=== PATIENT | female | born 1965 | race Caucasian/White ===

== ENCOUNTER → 2017-03-25 | Outpatient (CLI) | payer BC ==
[2017-03-25 15:17] VITALS: BP 134/89; PULSE 80; TEMP 98.8; BMI 27.8
--- NOTE | 2017-03-25 15:23 | P.HPBAR ---
Bariatric H&P - History & Physicial H&P Date: 03/25/17 History & Physicial: Visit/CC: follow up lap band Patient initial contact: Initial weight: Initial weight in pounds: Height: 5 ft Initial BMI: Last weight: Current weight: 64.773 kg Current weight in pounds: 142.80 Current BMI: 27.8 [place] body weight (based on NIH guidelines): 45.359 kg Excess body weight loss: The patient is a 51 year-old F who presents for Bariatric Assessment. Patient presents today for lab band follow up. She is not been seen for several years. Patient states that she's had dysphagia and GERD and vomiting for approximately 5 months. Her family doctor has given her Pepcid and Carafate Past Medical History Past Medical History: GERD/Reflux History of Any Multi-Drug Resistant Organisms: None Reported Past Surgical History: Bariatric Surgery, Cholecystectomy Additional Past Surgical History / Comment(s): gastric band 2011 Past Anesthesia/Blood Transfusion Reactions: No Reported Reaction Past Psychological History: No Psychological Hx Reported Smoking Status: Never smoker Past Alcohol Use History: None Reported Surgical - Exam Vital Signs Temp Pulse BP 98.8 F 80 134/89 03/25/17 15:09 03/25/17 15:09 03/25/17 15:09 - General well developed, no distress - Eyes PERRL - ENT normal pinna - Neck no masses - Respiratory normal expansion - Cardiovascular Rhythm: regular - Abdomen Abdomen: soft, non tender Bariatric Assessment & Plan Plan: The patient's lap band was adjusted. 3 mL was removed from her LAP-BAND. She currently has 2 mL remaining in the band. The patient was sent for an esophagram and upper GI. She'll follow-up in 2 weeks. Bariatric Checklist Checklist: Plan: Checklist: EGD: 1. Hiatal hernia: 2. H. Pylori: HgbA1c: Vitamin D: Smoking: Never smoker Primary care physician referral: none Psychiatry clearance: Cardiology clearance: Sleep study: Diet journal: VTE risk score: VTE risk level: Rehab needs at discharge:
--- NOTE | 2017-03-25 16:46 | FL ---
SINGLE CONTRAST UPPER GI EXAMINATION: CLINICAL HISTORY: 51-year-old female with lap band fibers ago, trouble swallowing for the past few m onths. TECHNIQUE: Single contrast exam performed with 2 ounces of thin barium. Total fluoroscopy time: 0.7 minutes. FINDINGS: The patient swallowed a total of 2 ounces of thin barium with some hesitancy but without difficulty. Esophageal peristalsis and motility are within normal limits. Laparoscopic banding device is noted t o be in place just below the GE junction. While it has a slightly horizontal orientation, there is go od flow of contrast across lap band with moderate restriction. IMPRESSION: A total of 2 ounces of thin barium was ingested. There is moderate restriction to the passage of cont rast across the lap band without evidence for obstruction or prolapse.
== END | disposition home or self-care (01) ==
LOC: BARWHC3 14:55
PROVIDERS: ATTEND Surgery
DX: Z09 Encounter for follow-up examination after completed treatment for conditions other than malignant neoplasm (principal); R13.10 Dysphagia, unspecified; Z98.84 Bariatric surgery status
CPT/HCPCS: 74220; 99201

== ENCOUNTER → 2017-11-15 | Outpatient (CLI) | payer BC ==
--- NOTE | 2017-11-15 10:56 | US ---
EXAMINATION TYPE: US pelvic complete DATE OF EXAM: 11/15/2017 COMPARISON: NONE CLINICAL HISTORY: N94.6 Dysmenorrhea, unspecified. Irregular painful cycles x 2 years, gotten worse in the past 6 months, 2, para 2 TECHNIQUE: Transabdominal (TA) Date of LMP: 11/09/2017 EXAM MEASUREMENTS: Uterus: 8.0 x 3.8 x 4.1 cm Endometrial Stripe: 0.4 cm Right Ovary: 2.3 x 1.3 x 1.6 cm Left Ovary: 1.7 x 1.2 x 1.6 cm 1. Uterus: anteverted, heterogeneous without any definite lesions seen at this time 2. Endometrium: wnl 3. Right Ovary: wnl 4. Left Ovary: wnl 5. Bilateral Adnexa: wnl 6. Posterior cul-de-sac: wnl IMPRESSION: 1. Nonspecific Uterine myometrial heterogeneity without distinct lesion.
== END | disposition home or self-care (01) ==
LOC: RADUSWWP 07:44
PROVIDERS: ATTEND Family Medicine
DX: N85.8 Other specified noninflammatory disorders of uterus (principal); N94.6 Dysmenorrhea, unspecified
CPT/HCPCS: 76856

== ENCOUNTER → 2018-03-10 | Outpatient (CLI) | payer BC ==
[2018-03-10 16:17] VITALS: BP 122/68; PULSE 85; RESP 16; TEMP 98; BMI 34.7
--- NOTE | 2018-03-10 16:27 | P.HPBAR ---
Bariatric H&P - History & Physicial H&P Date: 03/10/18 History & Physicial: Visit/CC: band adj Patient initial contact: Initial weight: Initial weight in pounds: Height: 5 ft Initial BMI: Last weight: Current weight: 80.513 kg Current weight in pounds: 177.50 Current BMI: 34.7 [place] body weight (based on NIH guidelines): 45.359 kg Excess body weight loss: The patient is a 52 year-old F who presents for Bariatric Assessment. The patient presents today for lab band follow. She has gained 30 pounds since her last visit. She was seen a year ago. She had 3 mL remove her band at that time. Past Medical History Past Medical History: GERD/Reflux History of Any Multi-Drug Resistant Organisms: None Reported Past Surgical History: Bariatric Surgery, Cholecystectomy Additional Past Surgical History / Comment(s): gastric band 2012 Past Anesthesia/Blood Transfusion Reactions: No Reported Reaction Smoking Status: Never smoker Surgical - Exam Vital Signs Temp Pulse Resp BP 98.0 F 85 16 122/68 03/10/18 16:12 03/10/18 16:12 03/10/18 16:12 03/10/18 16:12 - General well developed, no distress - Abdomen Abdomen: soft, non tender Bariatric Assessment & Plan Plan: 2 mL were added to the patient's LAP-BAND. She has 2.5 mL in the band. She'll follow-up in one month. Bariatric Checklist Checklist: Plan: Checklist: EGD: 1. Hiatal hernia: 2. H. Pylori: HgbA1c: Vitamin D: Smoking: Never smoker Primary care physician referral: none Psychiatry clearance: Cardiology clearance: Sleep study: Diet journal: VTE risk score: VTE risk level: Rehab needs at discharge:
== END | disposition home or self-care (01) ==
LOC: BARWHC3 15:54
PROVIDERS: ATTEND Surgery
DX: Z46.51 Encounter for fitting and adjustment of gastric lap band (principal); K21.9 Gastro-esophageal reflux disease without esophagitis; Z90.49 Acquired absence of other specified parts of digestive tract; Z98.84 Bariatric surgery status
CPT/HCPCS: 99212

== ENCOUNTER → 2018-03-24 | Outpatient (CLI) | payer BC ==
--- NOTE | 2018-03-24 15:54 | P.HPBAR ---
Bariatric H&P - History & Physicial H&P Date: 03/24/18 History & Physicial: Visit/CC: Patient initial contact: Initial weight: Initial weight in pounds: Height: Initial BMI: Last weight: 171 Current weight: 167 Current weight in pounds: Current BMI: [place] body weight (based on NIH guidelines): Excess body weight loss: The patient is a 52 year-old F who presents for Bariatric Assessment. Patient presents today for lab band follow up. She's had some occupants of GERD. She' s had good weight loss since her last visit. She denies any nausea or vomiting. Past Medical History Past Medical History: GERD/Reflux History of Any Multi-Drug Resistant Organisms: None Reported Past Surgical History: Bariatric Surgery, Cholecystectomy Additional Past Surgical History / Comment(s): gastric band 2012 Past Anesthesia/Blood Transfusion Reactions: No Reported Reaction Smoking Status: Never smoker Surgical - Exam - General well developed, no distress - Eyes PERRL - Neck no masses - Abdomen Abdomen: soft, non tender Bariatric Assessment & Plan Plan: Patient has some mild GERD. She denies any nausea or vomiting. Her band was not adjusted. She'll follow-up in one month. Bariatric Checklist Checklist: Plan: Checklist: EGD: 1. Hiatal hernia: 2. H. Pylori: HgbA1c: Vitamin D: Smoking: Never smoker Primary care physician referral: none Psychiatry clearance: Cardiology clearance: Sleep study: Diet journal: VTE risk score: VTE risk level: Rehab needs at discharge:
[2018-03-24 16:01] VITALS: BP 135/62; PULSE 73; TEMP 98; BMI 32.8
== END | disposition home or self-care (01) ==
LOC: BARWHC3 15:36
PROVIDERS: ATTEND Surgery
DX: Z09 Encounter for follow-up examination after completed treatment for conditions other than malignant neoplasm (principal); K21.9 Gastro-esophageal reflux disease without esophagitis; R63.4 Abnormal weight loss; Z90.49 Acquired absence of other specified parts of digestive tract; Z98.84 Bariatric surgery status
CPT/HCPCS: 99211

== ENCOUNTER → 2018-05-09 | Outpatient (CLI) | payer BC ==
--- NOTE | 2018-05-09 14:32 | XR ---
EXAMINATION TYPE: XR knee complete bilateral DATE OF EXAM: 05/09/2018 CLINICAL HISTORY: Bilateral knee pain. TECHNIQUE: Three views of the bilateral knees are obtained. COMPARISON: None. FINDINGS: There is no acute fracture/dislocation evident in either knee. There is fairly symmetric m ild tricompartment joint space loss. No significant spurring is seen. The overlying soft tissue appe ars unremarkable bilaterally. IMPRESSION: As above.
== END | disposition home or self-care (01) ==
LOC: RADXRYALE 14:11
PROVIDERS: ATTEND Physician Assistant Medical
DX: M25.562 Pain in left knee (principal); M25.561 Pain in right knee

== ENCOUNTER → 2018-10-17 | Outpatient (CLI) | payer BC ==
--- NOTE | 2018-10-17 14:19 | MM ---
Reason for exam: screening (asymptomatic). Last mammogram was performed 1 year ago. Physical Findings: A clinical breast exam by your physician is recommended on an annual basis and results should be correlated with mammographic findings. MG Screening Mammo w CAD Bilateral CC and MLO view(s) were taken. Prior study comparison: October 11, 2017, bilateral MG screening mammo w CAD. June 08, 2016, bilateral MG screening mammo w CAD. The breast tissue is heterogeneously dense. This may lower the sensitivity of mammography. No significant changes when compared with prior studies. ASSESSMENT: Benign, BI-RAD 2 RECOMMENDATION: Routine screening mammogram of both breasts in 1 year.
== END | disposition home or self-care (01) ==
LOC: RADMAMWWP 07:55
PROVIDERS: ATTEND Family Medicine
DX: Z12.31 Encounter for screening mammogram for malignant neoplasm of breast (principal)
CPT/HCPCS: 77067

== ENCOUNTER → 2019-06-12 | Outpatient (CLI) | payer BC ==
--- NOTE | 2019-06-12 13:46 | US ---
EXAMINATION TYPE: US thyroid st tissue head/neck DATE OF EXAM: 06/12/2019 COMPARISON: NONE CLINICAL HISTORY: R946 ABN RESULTS THYROID FUNCTIONS. complains of coldness, hair loss and fatigue GLAND SIZE: Right Lobe: 4.7 x 1.5 x 1.4 cm Overall Parenchyma: homogenous Left Lobe: 4.0 x 1.5 x 1.0 cm Overall Parenchyma: homogeneous Isthmus Thickness: 0.3 cm NODULES RIGHT: # of nodules measured on right: 2 largest of multiple 1. 0.3 X 0.3 x 0.2 cm hypoechoic cystic nodule at the upper pole with well-defined margins. This n odule is wider than tall and shows no intranodular vascularity. 2. 0.4 X 0.3 x 0.2 cm hypoechoic mixed nodule at the lower pole with well-defined margins. This nod ule is wider than tall and shows no intranodular vascularity. LEFT: # of nodules measured on left: 2 largest of multiple 1. 0.6 X 0.5 x 0.3 cm hypoechoic mixed nodule at the mid pole with poorly defined margins. This no dule is wider than tall and shows no intranodular vascularity. 2. 0.6 X 0.6 x 0.2 cm hypoechoic mixed nodule at the lower pole with well-defined margins. This nod ule is wider than tall and shows no intranodular vascularity. ISTHMUS: # of nodules measured in the isthmus: 0 Bilateral neck scanned: no evidence of lymphadenopathy. IMPRESSION: Bilateral subcentimeter thyroid nodules. None of these meet criteria this time for fine-needle aspira tion. Follow-up in 12 months could be considered.
== END | disposition home or self-care (01) ==
LOC: RADUSWWP 12:37
PROVIDERS: ATTEND Family Medicine
DX: E04.2 Nontoxic multinodular goiter (principal)
CPT/HCPCS: 76536

== ENCOUNTER → 2019-10-19 | Outpatient (CLI) | payer BC ==
[2019-10-19 16:42] VITALS: BP 133/73; PULSE 70; RESP 16; TEMP 98.7; BMI 26.2
--- NOTE | 2019-10-19 18:12 | P.HPBAR ---
Bariatric H&P - History & Physicial H&P Date: 10/19/19 History & Physicial: Visit/CC: ESOPHAGRAM F/U Patient initial contact: Initial weight: Initial weight in pounds: Height: 5 ft Initial BMI: Last weight: Current weight: 60.781 kg Current weight in pounds: 134.00 Current BMI: 26.2 [place] body weight (based on NIH guidelines): 45.359 kg Excess body weight loss: The patient is a 54 year-old F who presents for Bariatric Assessment. The patient has had some complaints of dysphagia. She is not sure how much fluid is in her LAP-BAND. Past Medical History Past Medical History: GERD/Reflux History of Any Multi-Drug Resistant Organisms: None Reported Past Surgical History: Bariatric Surgery, Cholecystectomy Additional Past Surgical History / Comment(s): gastric band 2012 Past Anesthesia/Blood Transfusion Reactions: No Reported Reaction Past Psychological History: No Psychological Hx Reported Smoking Status: Never smoker Past Alcohol Use History: None Reported Surgical - Exam Vital Signs Temp Pulse Resp BP 98.7 F 70 16 133/73 10/19/19 16:38 10/19/19 16:38 10/19/19 16:38 10/19/19 16:38 - General well developed, well nourished, no distress - Eyes PERRL - ENT normal pinna - Neck no masses - Respiratory normal expansion - Cardiovascular Rhythm: regular - Abdomen Abdomen: soft, non tender Bariatric Assessment & Plan Plan: The patient underwent esophagram. There is no evidence of any obstruction of her band. Her band appears to be slightly more horizontal however there is no obvious gastric prolapse. The patient will be observed. She'll follow-up in 4 weeks. Bariatric Checklist Checklist: Plan: Checklist: EGD: 1. Hiatal hernia: 2. H. Pylori: HgbA1c: Vitamin D: Smoking: Never smoker Primary care physician referral: none Psychiatry clearance: Cardiology clearance: Sleep study: Diet journal: VTE risk score: VTE risk level: Rehab needs at discharge:
--- NOTE | 2019-10-19 18:22 | FL ---
EXAMINATION TYPE: FL barium swallow DATE OF EXAM: 10/19/2019 COMPARISON: 01/09/2011 HISTORY: Lap band, dysphasia TECHNIQUE: A single contrast UGI study is performed. FINDINGS: Contrast passes from the distal esophagus through the lap band without hesitancy. No extrav asation of contrast is evident. LAP-BAND orientation is slightly flattened. No prolapse of stomach or stenosis to the LAP-BAND is identified. Lap band is stable in position from 01/09/2011 No free air is noted during this examination. Overhead radiographs were obtained which are unremarkable. IMPRESSIONS: 1. Normal post lap band without obstruction or hesitancy. No prolapse of stomach is evident.
== END | disposition home or self-care (01) ==
LOC: BARWHC3 14:19
PROVIDERS: ATTEND Surgery
DX: R13.10 Dysphagia, unspecified (principal); R10.13 Epigastric pain; Z98.84 Bariatric surgery status; Z90.49 Acquired absence of other specified parts of digestive tract
CPT/HCPCS: 74220; 99211

== ENCOUNTER → 2019-11-14 | Outpatient (CLI) | payer BC ==
--- NOTE | 2019-11-14 11:57 | US ---
EXAMINATION TYPE: US venous doppler duplex LE LT DATE OF EXAM: 11/14/2019 10:52 AM COMPARISON: NONE CLINICAL HISTORY: 54-year-old female [id number] PAIN IN LEFT LEG, R609 EDEMA. Pain and swelling left leg, pt states no known prior DVT SIDE PERFORMED: Left TECHNIQUE: The lower extremity deep venous system is examined utilizing real time linear array sonog jennyfer with graded compression, doppler sonography and color-flow sonography. FINDINGS: VESSELS IMAGED: External Iliac Vein (EIV) Common Femoral Vein Deep Femoral Vein Greater Saphenous Vein * Femoral Vein Popliteal Vein Small Saphenous Vein * Proximal Calf Veins (* superficial vessels) Left Leg: Positive for DVT within popliteal and proximal calf veins Results called to Dr. Recinos at time of exam IMPRESSION: Exam positive for DVT within the popliteal and upper calf veins of the left leg.
== END | disposition home or self-care (01) ==
LOC: RADUSMAIN 10:31
PROVIDERS: ATTEND Family Medicine
DX: I82.432 Acute embolism and thrombosis of left popliteal vein (principal); R60.9 Edema, unspecified

== ENCOUNTER → 2019-12-07 | Outpatient (CLI) | payer BC ==
[2019-12-07 16:08] VITALS: BP 125/78; PULSE 78; TEMP 98; BMI 27.5
--- NOTE | 2019-12-07 16:16 | P.HPBAR ---
Bariatric H&P - History & Physicial H&P Date: 12/07/19 History & Physicial: Visit/CC: lap band follow up Patient initial contact: Initial weight: 80.649 kg Initial weight in pounds: 177.80 Height: 5 ft Initial BMI: 34.7 Last weight: Current weight: 63.957 kg Current weight in pounds: 141.00 Current BMI: 27.5 [place] body weight (based on NIH guidelines): 45.359 kg Excess body weight loss: 47.3% The patient is a 54 year-old F who presents for Bariatric Assessment. Patient presents today for lab band follow. She is requesting a fill. She's currently hungry. Past Medical History Past Medical History: GERD/Reflux History of Any Multi-Drug Resistant Organisms: None Reported Past Surgical History: Bariatric Surgery, Cholecystectomy Additional Past Surgical History / Comment(s): gastric band 2012 Past Anesthesia/Blood Transfusion Reactions: No Reported Reaction Past Psychological History: No Psychological Hx Reported Smoking Status: Never smoker Past Alcohol Use History: None Reported Surgical - Exam Vital Signs Temp Pulse BP 98 F 78 125/78 12/07/19 16:03 12/07/19 16:03 12/07/19 16:03 - General well developed, well nourished, no distress - Eyes PERRL - Neck no masses - Cardiovascular Rhythm: regular - Abdomen Abdomen: soft, non tender Bariatric Assessment & Plan Plan: Patient's lap band was adjusted. She'll 0.5 mL added to her band. She currently has 4 mL in the band. She is able to drink water without difficulty. She'll follow-up in 4 weeks. Bariatric Checklist Checklist: Plan: Checklist: EGD: 1. Hiatal hernia: 2. H. Pylori: HgbA1c: Vitamin D: Smoking: Never smoker Primary care physician referral: none Psychiatry clearance: Cardiology clearance: Sleep study: Diet journal: VTE risk score: VTE risk level: Rehab needs at discharge:
== END | disposition home or self-care (01) ==
LOC: BARWHC3 15:43
PROVIDERS: ATTEND Surgery
DX: Z48.815 Encounter for surgical aftercare following surgery on the digestive system (principal); Z98.84 Bariatric surgery status; Z90.49 Acquired absence of other specified parts of digestive tract
CPT/HCPCS: 99212

== ENCOUNTER → 2019-12-28 | Outpatient (CLI) | payer BC ==
[2019-12-28 16:12] VITALS: BP 125/72; PULSE 85; RESP 16; TEMP 98.3; BMI 27.5
--- NOTE | 2019-12-31 11:18 | P.HPBAR ---
Bariatric H&P - History & Physicial H&P Date: 12/28/19 History & Physicial: Visit/CC: Band Adj Patient initial contact: Initial weight: 80.649 kg Initial weight in pounds: 177.80 Height: 5 ft Initial BMI: 34.7 Last weight: Current weight: 63.957 kg Current weight in pounds: 141.00 Current BMI: 27.5 [place] body weight (based on NIH guidelines): 45.359 kg Excess body weight loss: 47.3% The patient is a 54 year-old F who presents for Bariatric Assessment. She presents today for her LAP-BAND adjustment. She currently is hungry. Past Medical History Past Medical History: GERD/Reflux History of Any Multi-Drug Resistant Organisms: None Reported Past Surgical History: Bariatric Surgery, Cholecystectomy Additional Past Surgical History / Comment(s): gastric band 2012 Past Anesthesia/Blood Transfusion Reactions: No Reported Reaction Past Psychological History: No Psychological Hx Reported Smoking Status: Never smoker Past Alcohol Use History: None Reported Surgical - Exam Vital Signs Temp Pulse Resp BP 98.3 F 85 16 125/72 12/28/19 16:07 12/28/19 16:07 12/28/19 16:07 12/28/19 16:07 - General well developed, well nourished, no distress - Eyes PERRL - ENT normal pinna - Neck no masses - Respiratory normal expansion - Cardiovascular Rhythm: regular - Abdomen Abdomen: soft, non tender Bariatric Assessment & Plan Plan: Patient's lap band was adjusted. She'll 0.7 mL added to her band. She currently is 4.7 mL in the band. She will drink water without difficulty. She'll follow-up in 4 weeks. Bariatric Checklist Checklist: Plan: Checklist: EGD: 1. Hiatal hernia: 2. H. Pylori: HgbA1c: Vitamin D: Smoking: Never smoker Primary care physician referral: none Psychiatry clearance: Cardiology clearance: Sleep study: Diet journal: VTE risk score: VTE risk level: Rehab needs at discharge:
== END | disposition home or self-care (01) ==
LOC: BARWHC3 15:45
PROVIDERS: ATTEND Surgery
DX: Z46.51 Encounter for fitting and adjustment of gastric lap band (principal); Z98.84 Bariatric surgery status; Z90.49 Acquired absence of other specified parts of digestive tract
CPT/HCPCS: 99212

== ENCOUNTER → 2020-01-25 | Outpatient (CLI) | payer BC | END | disposition home or self-care (01) | LOC: BARWHC3 16:01 | PROVIDERS: ATTEND Surgery | DX: Z53.9 Procedure and treatment not carried out, unspecified reason (principal) ==

== ENCOUNTER → 2020-01-29 | Outpatient (CLI) | payer BC ==
[2020-01-29 09:52] VITALS: BP 117/82; PULSE 87; TEMP 97.2; BMI 28.3
--- NOTE | 2020-01-29 09:53 | P.HPBAR ---
Bariatric H&P - History & Physicial H&P Date: 01/29/20 History & Physicial: Visit/CC: Patient initial contact: Initial weight: 80.649 kg Initial weight in pounds: Height: 5 ft Initial BMI: Last weight: Current weight: 65.771 kg Current weight in pounds: Current BMI: [place] body weight (based on NIH guidelines): Excess body weight loss: The patient is a 54 year-old F who presents for Bariatric Assessment. Patient presents today for her LAP-BAND adjustment. She currently feels hungry. She has gained 5 pounds since her last visit. Past Medical History Past Medical History: GERD/Reflux History of Any Multi-Drug Resistant Organisms: None Reported Past Surgical History: Bariatric Surgery, Cholecystectomy Additional Past Surgical History / Comment(s): gastric band 2012 Past Anesthesia/Blood Transfusion Reactions: No Reported Reaction Past Psychological History: No Psychological Hx Reported Smoking Status: Never smoker Past Alcohol Use History: None Reported Surgical - Exam - General well developed, well nourished, no distress - Eyes PERRL - ENT normal pinna - Neck no masses - Respiratory normal expansion - Cardiovascular Rhythm: regular - Abdomen Abdomen: soft, non tender Bariatric Assessment & Plan Plan: Patient's lap band was adjusted. She had 0.5 mL added to her band. She is ill drink water without difficulty. She currently has 5.2 mL in the band. She'll follow-up in 4 weeks. Bariatric Checklist Checklist: Plan: Checklist: EGD: 1. Hiatal hernia: 2. H. Pylori: HgbA1c: Vitamin D: Smoking: Never smoker Primary care physician referral: none Psychiatry clearance: Cardiology clearance: Sleep study: Diet journal: VTE risk score: VTE risk level: Rehab needs at discharge:
== END | disposition home or self-care (01) ==
LOC: BARWHC3 08:54
PROVIDERS: ATTEND Surgery
DX: Z46.51 Encounter for fitting and adjustment of gastric lap band (principal); Z98.84 Bariatric surgery status; Z90.49 Acquired absence of other specified parts of digestive tract
CPT/HCPCS: 99212

== ENCOUNTER → 2020-04-15 | Outpatient (CLI) | payer BC ==
--- NOTE | 2020-04-15 09:16 | P.HPBAR ---
Bariatric H&P - History & Physicial H&P Date: 04/15/20 History & Physicial: Visit/CC: Patient initial contact: Initial weight: 80.649 kg Initial weight in pounds: Height: Initial BMI: Last weight: Current weight: Current weight in pounds: Current BMI: [place] body weight (based on NIH guidelines): Excess body weight loss: The patient is a 54 year-old F who presents for Bariatric Assessment. Patient presents today for lab band follow. She is requesting a fill of her LAP-BAND. She currently feels hungry. She's gained 5 pounds her last visit. Past Medical History Past Medical History: GERD/Reflux History of Any Multi-Drug Resistant Organisms: None Reported Past Surgical History: Bariatric Surgery, Cholecystectomy Additional Past Surgical History / Comment(s): gastric band 2012 Past Anesthesia/Blood Transfusion Reactions: No Reported Reaction Past Psychological History: No Psychological Hx Reported Smoking Status: Never smoker Past Alcohol Use History: None Reported Surgical - Exam - General well developed, well nourished, no distress - Eyes PERRL - ENT normal pinna - Neck no masses - Respiratory normal expansion - Cardiovascular Rhythm: regular - Abdomen Abdomen: soft, non tender Bariatric Assessment & Plan Plan: The patient LAP-BAND was adjusted. She'll 0.4 mL added to her band. She has 5.6 mL in the band. She is able require without difficulty. She'll follow-up in 4 weeks. Bariatric Checklist Checklist: Plan: Checklist: EGD: 1. Hiatal hernia: 2. H. Pylori: HgbA1c: Vitamin D: Smoking: Never smoker Primary care physician referral: none Psychiatry clearance: Cardiology clearance: Sleep study: Diet journal: VTE risk score: VTE risk level: Rehab needs at discharge:
[2020-04-15 09:26] VITALS: BP 124/82; PULSE 76; TEMP 99.2; BMI 29.0
== END | disposition home or self-care (01) ==
LOC: BARWHC3 08:16
PROVIDERS: ATTEND Surgery
DX: Z46.51 Encounter for fitting and adjustment of gastric lap band (principal); Z98.84 Bariatric surgery status
CPT/HCPCS: 99212

== ENCOUNTER → 2020-05-20 | Outpatient (CLI) | payer BC ==
[2020-05-20 10:44] VITALS: BP 106/86; PULSE 76; TEMP 98.6; BMI 4133.6
--- NOTE | 2020-06-06 13:42 | P.HPBAR ---
Bariatric H&P - History & Physicial H&P Date: 05/20/20 History & Physicial: Visit/CC: lap band follow up Patient initial contact: Initial weight: 80.649 kg Initial weight in pounds: 177.80 Height: 5 in Initial BMI: 4999.7 Last weight: Current weight: 66.678 kg Current weight in pounds: 147.00 Current BMI: 4133.6 [place] body weight (based on NIH guidelines): Excess body weight loss: The patient is a 54 year-old F who presents for Bariatric Assessment. Patient is a safer LAP-BAND adjustment. She is requesting a fill. Past Medical History Past Medical History: Deep Vein Thrombosis (DVT), GERD/Reflux Additional Past Medical History / Comment(s): dvt left leg 4-20 History of Any Multi-Drug Resistant Organisms: None Reported Past Surgical History: Bariatric Surgery, Cholecystectomy Additional Past Surgical History / Comment(s): gastric band 2011 Past Anesthesia/Blood Transfusion Reactions: No Reported Reaction Past Psychological History: No Psychological Hx Reported Past Alcohol Use History: None Reported Surgical - Exam Vital Signs Temp Pulse BP 98.6 F 76 106/86 05/20/20 09:20 05/20/20 09:20 05/20/20 09:20 - General well developed, well nourished, no distress - Eyes PERRL - ENT normal pinna - Neck no masses - Respiratory normal expansion - Cardiovascular Rhythm: regular - Abdomen Abdomen: soft, non tender Bariatric Assessment & Plan Plan: Patient's lap band was adjusted. She had 1 mL added to her band. She Is 5.7 ML in the Band. She'll Follow-Up in 4 Weeks. Bariatric Checklist Checklist: Plan: Checklist: EGD: 1. Hiatal hernia: 2. H. Pylori: HgbA1c: Vitamin D: Smoking: Never smoker Primary care physician referral: none Psychiatry clearance: Cardiology clearance: Sleep study: Diet journal: VTE risk score: VTE risk level: Rehab needs at discharge:
== END | disposition home or self-care (01) ==
LOC: BARWHC3 09:01
PROVIDERS: ATTEND Surgery
DX: Z46.51 Encounter for fitting and adjustment of gastric lap band (principal); Z98.84 Bariatric surgery status; Z90.49 Acquired absence of other specified parts of digestive tract
CPT/HCPCS: 99212

== ENCOUNTER → 2020-07-22 | Outpatient (CLI) | payer BC ==
--- NOTE | 2020-07-22 10:24 | XR ---
EXAMINATION TYPE: XR shoulder complete RT DATE OF EXAM: 07/22/2020 CLINICAL HISTORY: pain TECHNIQUE: Three views of the right shoulder are obtained. COMPARISON: None FINDINGS: There is no acute fracture/dislocation evident. The acromioclavicular and glenohumeral astrid int spaces appear within normal limits. The visualized ribs are intact and unremarkable. IMPRESSION: 1. There is no acute fracture or dislocation. ICD 10 NO FRACTURE, INITIAL EVALUATION
== END | disposition home or self-care (01) ==
LOC: RADXRYALE 10:03
PROVIDERS: ATTEND Family Medicine
DX: M25.511 Pain in right shoulder (principal)